=== PATIENT | male | born 1960 | race Caucasian/White ===

== ENCOUNTER 2020-02-15 14:00 | Outpatient (RCR) | payer OTHER | END 2020-02-15 14:30 | disposition still patient (30) | LOC: PT 14:00 | DX: Z98.890 Other specified postprocedural states (principal) ==

== ENCOUNTER 2021-08-07 10:51 | Emergency (ER) | payer OTHER ==
[~2021-08-07] VITALS: Ht 185.4 cm; Wt 107.7 kg
[2021-08-07] MEDS ORDERED: PREDNISONE20 M1 PO (12:41)
[2021-08-07] MEDS ORDERED: PROVENTIL0.09 MG/A1 IH (12:41)
[2021-08-07] MEDS ORDERED: ZITHROMAX Z PA250 MG PO (12:41)
[2021-08-07] MEDS ORDERED: HYDROCODONE PO473 ML PO (12:41)
[2021-08-07] MEDS ORDERED: BENZONATATE200 MG PO (12:41)
[2021-08-07 13:46] VITALS: BP 135/78
== END 2021-08-07 13:47 | disposition home or self-care (01) ==
LOC: ED 10:51
DX: J10.1 Influenza due to other identified influenza virus with other respiratory manifestations (principal); Z87.891 Personal history of nicotine dependence; Z20.822 Contact with and (suspected) exposure to COVID-19